=== PATIENT | male | born 1980 | race Hispanic/Latino ===

== ENCOUNTER 2017-06-29 21:42 | Emergency (ER) | payer BC ==
--- NOTE | 2017-06-29 22:06 | EDM.PDOC ---
ED HPI GENERAL MEDICAL PROBLEM - General Chief Complaint: Upper Extremity Injury/Pain Stated Complaint: PT HURT LT SHOULDER Time Seen by Provider: 06/29/17 22:03 - History of Present Illness INITIAL COMMENTS - FREE TEXT/NARRATIVE: HISTORY AND PHYSICAL: History of present illness: Patient 36-year-old white male presents with history of recent fall which injured his left shoulder chest he denies other trauma or concern Review of systems: As per history of present illness and below otherwise all systems reviewed and negative. Past medical history: As per history of present illness and as reviewed below otherwise noncontributory. Surgical history: As per history of present illness and as reviewed below otherwise noncontributory. Social history: No reported history of drug or alcohol abuse. Family history: As per history of present illness and as reviewed below otherwise noncontributory. Physical exam: HEENT: Atraumatic, normocephalic, pupils reactive, negative for conjunctival pallor or scleral icterus, mucous membranes moist, throat clear, neck supple, nontender, trachea midline. Lungs: Clear to auscultation, breath sounds equal bilaterally, chest without localized tenderness. Heart: S1S2, regular, negative for clicks, rubs, or JVD. Abdomen: Soft, nondistended, nontender. Negative for masses or hepatosplenomegaly. Negative for costovertebral tenderness. Pelvis: Stable nontender. Genitourinary: Deferred. Rectal: Deferred. Extremities: Tenderness palpation over his anterior deltoid was no crepitation or point tenderness he has limited range of motion secondary to pain Neuro: Awake, alert, oriented. Cranial nerves II through XII unremarkable. Cerebellum unremarkable. Motor and sensory unremarkable throughout. Exam nonfocal. Diagnostics: X-ray left shoulder/chest Therapeutics: None Impression: 1 history of fall #2 acute left shoulder injury #3 left chest injury Definitive disposition and diagnosis as appropriate pending reevaluation and review of above. - Related Data Allergies Allergy/AdvReac Type Severity Reaction Status Date / Time No Known Allergies Allergy Unverified 06/29/17 22:03 Home Meds: Home Meds Losartan/Hydrochlorothiazide [Losartan-HCTZ 100-25 MG] 1 each PO DAILY 02/20/15 [History] Social & Family History - Tobacco Use Smoking Status *Q: Never Smoker Second Hand Smoke Exposure: No - Recreational Drug Use Recreational Drug Use: No Review of Systems - Review of Systems Review Of Systems: ROS reveals no pertinent complaints other than HPI. ED EXAM, GENERAL - Physical Exam Exam: See Below (See dictation) Departure - Departure Time of Disposition: 22:05 Disposition: Home, Self-Care 01 Condition: Good Clinical Impression: Shoulder injury, Chest injury - Discharge Information Referrals: PCP,None [Primary Care Provider] - Additional Instructions: The following information is given to patients seen in the emergency department who are being discharged to home. This information is to outline your options for follow-up care. We provide all patients seen in our emergency department with a follow-up referral. The need for follow-up, as well as the timing and circumstances, are variable depending upon the specifics of your emergency department visit. If you don't have a primary care physician on staff, we will provide you with a referral. We always advise you to contact your personal physician following an emergency department visit to inform them of the circumstance of the visit and for follow-up with them and/or the need for any referrals to a consulting specialist. The emergency department will also refer you to a specialist when appropriate. This referral assures that you have the opportunity for followup care with a specialist. All of these measure are taken in an effort to provide you with optimal care, which includes your followup. Under all circumstances we always encourage you to contact your private physician who remains a resource for coordinating your care. When calling for followup care, please make the office aware that this follow-up is from your recent emergency room visit. If for any reason you are refused follow-up, please contact the [facility] emergency department at and asked to speak to the emergency department charge nurse. [facility] Professional Building [address] [place] [address], [address] [place] [address] Sling as directed Ultram as prescribed follow-up primary medical doctor call to schedule routine appointment with orthopedic clinic above return as needed as discussed
[2017-06-30 02:28] VITALS: BP 127/67
--- NOTE | 2017-06-30 11:15 | CR ---
EXAM DATE: 06/29/17 PATIENT'S AGE: 36 Patient: LOUIE JEAN Facility: [place], [place] Site . Site : 1980 Study: XRay Shoulder [id number]/28/2017 10:48:28 PM Ordering Physician: James Rivas Final Report: INDICATION: fall 3 wks ago TECHNIQUE: Three views of the left shoulder COMPARISON: None FINDINGS: Bones: No fractures or bone lesions. Joint spaces: Unremarkable. Soft tissues: Unremarkable. IMPRESSION: No acute bony abnormality Dictated by Rohit Pagan MD @ 06/29/2017 11:12:05 PM Dictated by: Rohit Pagan MD @ 06/29/2017 23:12:16 (Electronic Signature) Report Signed by Proxy. ALETHA
--- NOTE | 2017-06-30 11:15 | CR ---
EXAM DATE: 06/29/17 PATIENT'S AGE: 36 Patient: LOUIE JEAN Facility: [place], [place] Site . Site : 1980 Study: XRay Chest [id number]/28/2017 10:48:49 PM Ordering Physician: James Rivas Final Report: INDICATION: fall 3wks ago TECHNIQUE: Chest 2 views COMPARISON: None FINDINGS: Cardiovascular and mediastinum: Heart size and vasculature are normal in caliber and appearance. Mediastinum is within normal limits. Lungs and pleural spaces: No focal consolidation. No sign of pleural effusion. No pneumothorax. Bones and soft tissues: No significant findings. IMPRESSION: No acute cardiopulmonary disease. Dictated by Rohit Pagan MD @ 06/29/2017 11:13:41 PM Dictated by: Rohit Pagan MD @ 06/29/2017 23:13:52 (Electronic Signature) Report Signed by Proxy. [facility]
== END 2017-06-30 00:01 | disposition home or self-care (01) ==
LOC: MW.ED 21:42
DX: S49.92XA Unspecified injury of left shoulder and upper arm, initial encounter (principal); S29.9XXA Unspecified injury of thorax, initial encounter; Z79.899 Other long term (current) drug therapy; W19.XXXA Unspecified fall, initial encounter
CPT/HCPCS: 71020; 71020-26; 73030-26-LT; 73030-LT; 99282; 99283